=== PATIENT | male | born 1995 | race African-American/Black ===

== ENCOUNTER 2019-08-14 02:01 | Emergency (ER) | payer OTHER ==
[~2019-08-14] VITALS: Ht 180.3 cm; Wt 118.0 kg
[2019-08-14 02:17] VITALS: BP 140/84
== END 2019-08-14 02:35 | disposition left against medical advice (07) ==
LOC: ER 02:01
DX: T78.40XA Allergy, unspecified, initial encounter (principal); Z53.21 Procedure and treatment not carried out due to patient leaving prior to being seen by health care provider; X58.XXXA Exposure to other specified factors, initial encounter; Y93.89 Activity, other specified; Y92.89 Other specified places as the place of occurrence of the external cause; Y99.8 Other external cause status

== ENCOUNTER 2022-10-26 01:46 | Emergency (ER) | payer OTHER ==
[~2022-10-26] VITALS: Ht 180.3 cm; Wt 128.0 kg
[2022-10-26 02:05] VITALS: BP 137/90; PULSE 88; RESP 18; TEMP 98.6; O2SAT 100
[2022-10-26 03:56] LABS: CLARITY URINE CLEAR (CLEAR); COLOR URINE YELLOW (YELLOW); GLUCOSE URINE NEGATIVE (NEGATIVE); KETONES URINE NEGATIVE (NEGATIVE); LEUKOCYTE ESTERASE URINE NEGATIVE (NEGATIVE); NITRITE URINE NEGATIVE (NEGATIVE); OCCULT BLOOD URINE NEGATIVE (NEGATIVE); PROTEIN URINE NEGATIVE (NEGATIVE); SPECIFIC GRAVITY URINE 1.025 (1.005-1.030)
[2022-10-27 08:10] LABS: HIV SCREEN 4G Non Reactive (Non Reactive)
== END 2022-10-26 04:57 | disposition home or self-care (01) ==
LOC: ER 01:46
DX: A64 Unspecified sexually transmitted disease (principal); F20.9 Schizophrenia, unspecified
CPT/HCPCS: 81003; 86592; 87389; 99283